=== PATIENT | female | born 1945 | race Hispanic/Latino ===

== ENCOUNTER 2019-06-20 10:09 | Observation (INO) | payer MEDICARE, OTHER ==
[2019-06-13 14:44] LABS: BASOPHILS % 0.5 % (0.0-1.0); EOSINOPHILS # (AUTO) 0.3 (0.0-0.4); EOSINOPHILS % 4.3 % (0.0-6.0); HEMATOCRIT 41.3 % (34.2-44.1); HEMOGLOBIN 13.2 g/dL (12.0-16.0); LYMPHOCYTES # (AUTO) 1.4 (1.0-3.2); LYMPHOCYTES % 23.6 % (18.0-39.1); MEAN CORPUSCULAR HEMOGLOBIN 31.9 pg (28-32); MEAN CORPUSCULAR VOLUME 99.8 fL (81-99); MONOCYTES # (AUTO) 0.4 (0.2-0.8); MONOCYTES % 6.7 % (4.4-11.3); NEUTROPHILS # (AUTO) 3.8 (2.1-6.9); NEUTROPHILS % 64.6 % (38.7-80.0); PLATELET COUNT 133 x10e3/uL (140-360); RED BLOOD COUNT 4.14 x10e6/uL (3.6-5.1)
[2019-06-13 15:02] LABS: ALANINE AMINOTRANSFERASE 19 IU/L (0-55); ALBUMIN 3.8 g/dL (3.5-5.0); ALKALINE PHOSPHATASE 142 IU/L (40-150); ANION GAP 11.4 mmol/L (8-16); BLOOD UREA NITROGEN 19 mg/dL (7-26); BUN/CREATININE RATIO 24 (6-25); CALCIUM 9.9 mg/dL (8.4-10.2); CARBON DIOXIDE 25 mmol/L (22-29); CHLORIDE 105 mmol/L (98-107); CREATININE, SERUM 0.79 mg/dL (0.57-1.11); EST GLOMERULAR FILTRATION RATE > 60 ML/MIN (60-); GLUCOSE 104 mg/dL (74-118); POTASSIUM 4.4 mmol/L (3.5-5.1); SODIUM 137 mmol/L (136-145)
[2019-06-20] VITALS (15 sets, daily range): BP systolic 146–171; BP diastolic 66–77
[~2019-06-20] VITALS: Ht 154.9 cm; Wt 48.5 kg
[~2019-06-20 10:09] MED LIST: ASA81 MG PO; ASPIR 8181 MG PO; ATORVASTATIN CA10 MG PO; BACTRIM DS1 EA PO; CALCIUM PO; CLOPIDOGREL75 MG PO; DITROPAN 5MG TAB5 MG PO; FUROSEMIDE40 MG PO; LISINOPRIL10 MG PO; MEPERIDINE PO; METFORMIN HCL500 MG PO; NORCO 10-325 T1 EACH PO; OMEPRAZOLE40 MG PO; TEMAZEPAM15 MG PO; TRAZODONE HCL50 MG PO; TYLENOL WITH C1 EACH PO; Z POTASSIUM CHLOR PO; Z.0.AMITRIPTYLINE H1 PO; Z.0.GLUCOPHAGE1000 M PO; Z.0.LASIX20 MG PO; Z.0.PLAVIX75 MG PO; Z.0.ZOCOR10 MG PO
[2019-06-20] MEDS ORDERED: ALPRAZOLAM 0.5 MG TAB ONE (10:35)
[2019-06-20] MEDS ORDERED: DIPHENHYDRAMINE HCL 25 MG CAP ONE (10:35)
[2019-06-20] MEDS ORDERED: HEPARIN SOD/SOD CHLORIDE 2,000 ML ONE (12:15)
[2019-06-20] MEDS ORDERED: FENTANYL CITRATE/PF 100MCG/2 ML INJ ONE (12:15)
[2019-06-20] MEDS ORDERED: MIDAZOLAM HCL 2 MG/2 ML VIAL ONE ×2 (12:15→12:58)
[2019-06-20] MEDS ORDERED: LIDOCAINE HCL 2% LOCAL 20 ML VIAL ONE (12:15)
[2019-06-20] MEDS ORDERED: IOPAMIDOL 300MG/ML 100 ML INFUS..BTL IV ONE (12:16)
[2019-06-20] MEDS ORDERED: SODIUM CHLORIDE 0.9% 1000ML 1,000 ML ONE ×2 (12:16→12:46)
[2019-06-20] MEDS ORDERED: VERAPAMIL HCL 2.5 MG/ML 2 ML VIAL ONE (12:46)
[2019-06-20] MEDS ORDERED: PRASUGREL 10 MG TAB ONE (13:13)
[2019-06-20] MEDS ORDERED: ASPIRIN 325 MG TAB ONE (13:13)
[2019-06-20] MEDS ORDERED: PROTAMINE SULFATE 10 MG/ML 5 ML VIAL ONE (13:34)
--- NOTE | 2019-06-20 13:39 | NUR ---
1339Received pt to room #10,bedside report received from Hannah CORBETT. Alert oriented and appropriate, PERRLA, respirations even and unlabored to room air. Pulses x4 extremities equal and strong. Pedal pulses PT/DP XXXXX and marked. Cap fill brisk < 3 sec. Skin warm and dry integrity appears D/I. IV 20g to left presents healthy w/o s/s of infiltration or complaint. Abdomen soft and supple. pt offered toileting, denies need to urinate or defecate. No personal affects with patient. Family Consquella at bedside. Pt and family verbalizes understanding POC Currently w/o complaint of pain or need. Act at 1400 159 Report to Jay Jay cardiovascular technologist ready for pull .Informed house supv. necessity tele obsv. Orders in and Tele track logged for bed.Rt sheath site NO gross issues pain pallor pressure or dysrhythmia.ds/santino
--- NOTE | 2019-06-20 14:44 | NUR ---
1444 Miguel Angel Rn at bedside sheath pull in progress held 20min stasis achieved and Tegaderm dressing ready for transfer to floor care Report phoned to Ashley Quiñonez ds/rn
--- NOTE | 2019-06-20 15:45 | NUR ---
1545p Transferred pt to room 109 for tele observation admit Dr Soto to probable am dc. Dc papers reviewed with family and have copy,bedside report given face to face to ARIC Ramirez.Down time till 1905pm Alert oriented and appropriate remains slightly drowsy, PERRLA, respirations even and unlabored to room air. Pulses x2 Pedal pulses PT/DP Pt is left amputation. Cap fill brisk < 3 sec. Skin warm and dry integrity appears IV 20g to hand at 100cchr presents healthy w/o s/s of infiltration or complaint. Abdomen soft and supple. pt offered toileting, urinated x1 per bedpan. No personal affects with patient. Family daughter Ivonne at bedside. Pt and family verbalizes understanding of POC. For probable dc in am. Currently w/o complaint of pain or need. Left sheath site stable No gross issues pain pallor pressure or dysrhythmia.Left Tegederm dressing intact. Report to tele rm and left pt with family at bedside. Call light at bedside and bed in low position. Did transfer pt snack tray and informed pt is on regular diet. ds/rn
--- NOTE | 2019-06-20 15:56 | NUR ---
Pt arrived to unit via stretcher with assist x2. Lethargic, fluids being administered at this time. Dressing to L groin, pedal pulses detected in RLE. IV to L hand patent, no redness or swelling to insertion site. Down time for pt till 1905 per [employer] CLERK [employer]. Tele monitor in place. Call light within reach, due to pt's lethargy, nurse informed family on how to use call light. Bed in lowest position.
[2019-06-20] MEDS ORDERED: ACETAMINOPHEN/CODEINE 300MG - 30MG TAB PO PRN ×2 (16:15→18:30)
[2019-06-20] MEDS ORDERED: MORPHINE SULFATE INJ 4 MG/ML INJ 1ML IV PRN (16:30)
[2019-06-20] MEDS: SODIUM CHLORIDE 0.9% 1000ML 1,000 ML IV SCH (16:59)
[2019-06-20] MEDS: OXYBUTYNIN CHLORIDE 5 MG TAB PO SCH (17:00)
--- NOTE | 2019-06-20 18:08 | NUR ---
Pt presents to still be lethargic due to medication received in post procedure. Arousal to touch and voice. L groin soft when palpated, pedal pulses detected in RLE. Pt still in supine position with surgical site leg to remain straight until 1905. Call light within reach, bed locked and in lowest position. Family member at bedside.
--- NOTE | 2019-06-20 19:10 | NUR ---
WALKING ROUNDS PERFORMED, RECEIVED PT LAYING SEMI FOWLERS IN BED, AAOX3, RR EVEN AND NON-LABORED, ON ROOM AIR. NO S/SX OF DISTRESS NOTED. DRESSING TO (L) GROIN NOTED TO BE CDI. PULSES TO (R) LOWER EXTREMITY NOTED. LEFT PT LAYING SEMI FOWLERS IN BED, BED IN LOW LOCKED POSITION, SIDE RAILS UPX2, CALL LIGHT AND PHONE WITHIN REACH.
[2019-06-20] MEDS: TRAZODONE HCL 50 MG TAB PO SCH (20:25)
--- NOTE | 2019-06-20 21:48 | Operative Report ---
DATE OF PROCEDURE: 06/20/2019 SURGEON: Dhiraj Soto MD CARDIAC AGENT PRODUCER PROCEDURE. INDICATIONS: Peripheral arterial disease, claudication of right lower extremity. PROCEDURES PERFORMED: 1. Abdominal aorta catheter placement with abdominal aortogram. 2. Third-order catheter placement from the left femoral artery to the right superficial femoral artery with unilateral extremity angiogram. 3. Additional third-order catheter placement from the left femoral artery to the right peroneal artery. 4. Atherectomy and angioplasty of the right femoral artery. 5. Secondary thrombectomy of the right femoral artery. COMPLICATIONS: None. RECOMMENDATIONS: Dual antiplatelet therapy for life. DESCRIPTION OF PROCEDURE: Access obtained in the left femoral artery. Abdominal aortogram was performed, demonstrated widely patent abdominal aorta iliacs bilaterally. The catheter was then advanced from the left femoral artery to the right superficial femoral artery, proximal right superficial femoral artery, 90% stenosis, mid and distal right superficial femoral artery, 90% tandem stenosis. Infrapopliteal vessels were not well visualized. The catheter was then advanced from the left femoral artery to the right peroneal artery. Two-vessel runoff via the right posterior tibial and peroneal arteries. Posterior tibial is diminutive and occluded at the plantar arch. Incomplete plantar arch in the right foot was noted. A decision was made to intervene on the right femoral artery. The patient received heparin for anticoagulation. The sheath was exchanged to a 6-Polish 45 cm sheath advanced from the left femoral artery to the right superficial femoral artery. Orbital atherectomy was performed following which balloon angioplasty using 5 and 6 mm drug-eluting balloons was performed, large amounts of visible thrombus with manual aspiration thrombectomy as needed to the right femoral artery, excellent end result, two-vessel runoff to the right foot. No complications. The left groin sheath was secured in place for removal under manual pressure. The patient was transferred to the floor in stable condition. Dhiraj Soto MD [facility]/MODL /[id number]
[2019-06-21] VITALS (8 sets, daily range): BP systolic 104–179; BP diastolic 56–96
[2019-06-21] MEDS: SODIUM CHLORIDE 0.9% 1000ML 1,000 ML IV SCH ×2 (00:09→12:15)
[2019-06-21] MEDS: ASPIRIN 81 MG CHEW TAB PO SCH (08:30)
[2019-06-21] MEDS: FUROSEMIDE 40 MG TAB PO SCH (08:30)
[2019-06-21] MEDS: ATORVASTATIN 10 MG TAB PO SCH (08:30)
[2019-06-21] MEDS: PANTOPRAZOLE SOD 40 MG TABEC PO SCH (08:30)
[2019-06-21] MEDS: OXYBUTYNIN CHLORIDE 5 MG TAB PO SCH ×2 (08:30→16:55)
[2019-06-21] MEDS: CLOPIDOGREL BISULFATE 75 MG TAB PO SCH (08:30)
--- NOTE | 2019-06-21 18:50 | NUR ---
RECEIVED REPORT FROM PREVIOUS NURSE. CALL LIGHT WITHIN REACH. PATIENT IN BED. DAUGHTER AT THE BEDSIDE. PATIENT IN NO DISTRESS
[2019-06-21] MEDS: AMLODIPINE BESYLATE 5 MG TAB PO SCH (19:41)
[2019-06-21] MEDS: TRAZODONE HCL 50 MG TAB PO SCH (20:20)
--- NOTE | 2019-06-21 20:21 | Progress Note ---
DATE: Cardiology Progress Note SUBJECTIVE: The patient reports pain in the left foot, headache, multiple other nonspecific symptoms. OBJECTIVE: VITAL SIGNS: Temperature is 97.3, heart rate is 86, respirations are 18, blood pressure is 150/71, and oxygen saturation 97% on room air. GENERAL: Well appearing, in mild distress due to pain. HEAD: Normocephalic and atraumatic. CARDIOVASCULAR: Regular rate and rhythm. LUNGS: Clear to auscultation. ABDOMEN: Soft, nontender, and nondistended. EXTREMITIES: No edema. CARDIOVASCULAR MEDICATIONS: Reviewed. LABORATORY DATA: Reviewed. IMPRESSION: 1. Peripheral arterial disease, status post intervention. 2. Hypertension. 3. Pain. 4. Headache. 5. Hyperlipidemia. RECOMMENDATIONS: The patient will be kept overnight due to intractable pain. Pain medications have been initiated on an as needed basis. We will give amlodipine for high blood pressure. We will continue dual antiplatelet therapy and statin for her peripheral arterial disease. Groin site looks nice and clean without any evidence of hematoma formation. Ramirez Apple DO BM/MODL /[id number]
[2019-06-22] VITALS: BP 164/68
[2019-06-22 04:00] VITALS: BP 101/50
[2019-06-22] MEDS: SODIUM CHLORIDE 0.9% 1000ML 1,000 ML IV SCH ×2 (05:55→08:15)
--- NOTE | 2019-06-22 07:00 | NUR ---
Gave report to oncoming nurse. Call light within reach. Patient in bed. Daughter at bedside
[2019-06-22 08:00] VITALS: BP 117/59
[2019-06-22 08:20] VITALS: BP 117/59
[2019-06-22] MEDS: ATORVASTATIN 10 MG TAB PO SCH (08:24)
[2019-06-22] MEDS: OXYBUTYNIN CHLORIDE 5 MG TAB PO SCH (08:24)
[2019-06-22] MEDS: PANTOPRAZOLE SOD 40 MG TABEC PO SCH (08:24)
[2019-06-22] MEDS: FUROSEMIDE 40 MG TAB PO SCH (08:24)
[2019-06-22] MEDS: CLOPIDOGREL BISULFATE 75 MG TAB PO SCH (08:24)
[2019-06-22] MEDS: AMLODIPINE BESYLATE 5 MG TAB PO SCH (08:24)
[2019-06-22] MEDS: ASPIRIN 81 MG CHEW TAB PO SCH (08:24)
[2019-06-22] MEDS ORDERED: AMLODIPINE BESYL5 MG PO (10:59)
--- NOTE | 2019-06-22 11:10 | NUR ---
patient alert and oriented with daughter at bedside. discharge instructions given at this time, both verbalized understanding. IV discontinued, catheter in tact and small dressing applied. patient to be wheeled out in personal wheelchair to private auto for daughter to drive home
== END 2019-06-22 12:43 | disposition home or self-care (01) ==
LOC: CATH LAB 10:09 → INTOOBSV 14:22 → PACU V 14:22 → MED/SURG 15:51
PROVIDERS: ADMIT Internal Medicine Interventional Cardiology; ATTEND Internal Medicine Interventional Cardiology
DX: I73.9 Peripheral vascular disease, unspecified (principal); I10 Essential (primary) hypertension; R51 Headache; E78.5 Hyperlipidemia, unspecified
CPT/HCPCS: 36415 ×3; 37186; 37225; 75625; 75710; 80053; 82948 ×2; 85025; C1724; C1766; C1769 ×2; C1887 ×2; G0378 ×3; J2001; J2250; J2270; J2720; J3010; J7030 ×3; Q9967; S0164 ×2; 36247; 99152; 99153

== ENCOUNTER 2022-12-25 16:26 | Emergency (ER) | payer MEDICARE, OTHER ==
[~2022-12-25] VITALS: Ht 154.9 cm; Wt 38.1 kg
[~2022-12-25 16:26] MED LIST changes: +AMLODIPINE BESYL5 MG PO
[2022-12-25 16:48] VITALS: O2SAT 100
== END 2022-12-25 17:30 | disposition home or self-care (01) ==
LOC: ER 16:35
DX: E11.649 Type 2 diabetes mellitus with hypoglycemia without coma (principal); I10 Essential (primary) hypertension; E78.5 Hyperlipidemia, unspecified; I73.9 Peripheral vascular disease, unspecified; K21.9 Gastro-esophageal reflux disease without esophagitis
CPT/HCPCS: 36415; 82948

== ENCOUNTER 2023-01-10 14:48 | Emergency (ER) | payer MEDICARE, OTHER ==
[~2023-01-10] VITALS: Ht 154.9 cm; Wt 38.1 kg
[2023-01-10] MEDS ORDERED: KETOROLAC TROMETHAMINE 30 MG/ML VIAL IM ONE (15:24)
[2023-01-10] MEDS ORDERED: NAPROXEN250 MG PO (17:01)
[2023-01-10] MEDS ORDERED: HYDROCODONE/APAP 5MG-325MG TAB PO ONE (17:15)
[2023-01-10 17:31] VITALS: BP 122/50; PULSE 84; RESP 16; TEMP 98.6; O2SAT 100
== END 2023-01-10 17:25 | disposition home or self-care (01) ==
LOC: ER 14:56
DX: S00.83XA Contusion of other part of head, initial encounter (principal); M25.532 Pain in left wrist; Z89.612 Acquired absence of left leg above knee; W18.39XA Other fall on same level, initial encounter; Y92.89 Other specified places as the place of occurrence of the external cause; I10 Essential (primary) hypertension; E11.9 Type 2 diabetes mellitus without complications; E78.5 Hyperlipidemia, unspecified; I73.9 Peripheral vascular disease, unspecified; K21.9 Gastro-esophageal reflux disease without esophagitis
CPT/HCPCS: 70450; 72125; 73110; 73552; 99283; J1885

== ENCOUNTER 2024-05-25 13:16 | Emergency (ER) | payer MEDICARE, OTHER ==
[~2024-05-25] VITALS: Ht 157.5 cm; Wt 39.5 kg
[~2024-05-25 13:16] MED LIST changes: +NAPROXEN250 MG PO
[2024-05-25 15:12] VITALS: TEMP 97.8
[2024-05-25 15:50] LABS: BASOPHILS % 0.2 % (0.0-1.0); EOSINOPHILS % 0.3 % (0.0-6.0); HEMATOCRIT 35.5 % (34.2-44.1); HEMOGLOBIN 10.4 g/dL (12.0-16.0); LYMPHOCYTES # (AUTO) 0.7 (1.0-3.2); LYMPHOCYTES % 6.1 % (18.0-39.1); MEAN CORPUSCULAR HEMOGLOBIN 29.4 pg (28-32); MEAN CORPUSCULAR HGB CONC 29.3 g/dL (31-35); MEAN CORPUSCULAR VOLUME 100.3 fL (81-99); MONOCYTES # (AUTO) 0.3 (0.2-0.8); MONOCYTES % 3.2 % (4.4-11.3); NEUTROPHILS # (AUTO) 9.6 (2.1-6.9); NEUTROPHILS % 89.9 % (38.7-80.0); PLATELET COUNT 207 x10e3/uL (140-360); RED BLOOD COUNT 3.54 x10e6/uL (3.6-5.1); RED CELL DISTRIBUTION WIDTH 16.8 % (11.7-14.4); WHITE BLOOD COUNT 10.64 x10e3/uL (4.8-10.8)
[2024-05-25] MEDS: SODIUM CHLORIDE 0.9% 500ML 500 ML IV ONE (15:54)
[2024-05-25 16:04] LABS: INR 0.96; PROTHROMBIN TIME 13.4 seconds (11.9-14.5)
[2024-05-25 16:11] LABS: ALBUMIN 3.2 g/dL (3.5-5.0); ALBUMIN/GLOBULIN RATIO 0.7 (0.8-2.0); ANION GAP 17.4 mmol/L (8-16); BILIRUBIN,TOTAL 0.4 mg/dL (0.2-1.2); CREATININE, SERUM 1.14 mg/dL (0.57-1.11); MAGNESIUM 1.9 MG/DL (1.3-2.1); POTASSIUM 4.4 mmol/L (3.5-5.1)
[2024-05-25 16:17] LABS: TROPONIN I 0.069 ng/mL (0-0.300)
[2024-05-25 18:34] VITALS: PULSE 91; RESP 16; O2SAT 97
== END 2024-05-25 19:03 | disposition home or self-care (01) ==
LOC: ER 15:30
DX: Z04.3 Encounter for examination and observation following other accident (principal); W18.11XA Fall from or off toilet without subsequent striking against object, initial encounter; Y92.89 Other specified places as the place of occurrence of the external cause; I10 Essential (primary) hypertension; E11.9 Type 2 diabetes mellitus without complications; E78.5 Hyperlipidemia, unspecified; I73.9 Peripheral vascular disease, unspecified; K21.9 Gastro-esophageal reflux disease without esophagitis
CPT/HCPCS: 36415; 70450; 71045; 72125; 80053; 82550; 83735; 84484; 85025; 85610; 85730; 93005; 99284; J7040

== ENCOUNTER 2024-09-23 21:27 | Emergency (ER) | payer MEDICARE, OTHER ==
[~2024-09-23] VITALS: Ht 152.4 cm; Wt 39.5 kg
[2024-09-23 21:30] VITALS: TEMP 98
[2024-09-23 22:29] LABS: BASOPHILS % 0.1 % (0.0-1.0); HEMATOCRIT 28.6 % (34.2-44.1); HEMOGLOBIN 9.3 g/dL (12.0-16.0); LYMPHOCYTES # (AUTO) 0.4 (1.0-3.2); LYMPHOCYTES % 2.7 % (18.0-39.1); MEAN CORPUSCULAR HEMOGLOBIN 30.5 pg (28-32); MEAN CORPUSCULAR HGB CONC 32.5 g/dL (31-35); MEAN CORPUSCULAR VOLUME 93.8 fL (81-99); MONOCYTES # (AUTO) 0.6 (0.2-0.8); MONOCYTES % 3.4 % (4.4-11.3); NEUTROPHILS % 93.4 % (38.7-80.0); PLATELET COUNT 168 x10e3/uL (140-360); RED BLOOD COUNT 3.05 x10e6/uL (3.6-5.1); RED CELL DISTRIBUTION WIDTH 16.6 % (11.7-14.4); WHITE BLOOD COUNT 16.02 x10e3/uL (4.8-10.8)
[2024-09-23 22:34] LABS: CORONAVIRUS COVID-19 AG NEGATIVE (NEGATIVE); INFLUENZA A AG NEGATIVE (NEGATIVE); INFLUENZA B AG NEGATIVE (NEGATIVE)
[2024-09-23] MEDS: SODIUM CHLORIDE 0.9% 1000ML 1,000 ML IV STA (22:35)
[2024-09-23] MEDS: ACETAMINOPHEN 325 MG TAB PO STA (22:36)
[2024-09-23 22:41] LABS: ALBUMIN 2.5 g/dL (3.5-5.0); ALBUMIN/GLOBULIN RATIO 0.5 (0.8-2.0); ANION GAP 14.3 mmol/L (8-16); BILIRUBIN,TOTAL 1.3 mg/dL (0.2-1.2); CALCIUM 9.4 mg/dL (8.4-10.2); CREATININE, SERUM 1.04 mg/dL (0.57-1.11); TOTAL PROTEIN 7.5 g/dL (6.5-8.1)
[2024-09-23 22:44] LABS: POTASSIUM 3.3 mmol/L (3.5-5.1)
[2024-09-23 22:49] LABS: TROPONIN I 0.472 ng/mL (0-0.300)
[2024-09-24] MEDS ORDERED: IOPAMIDOL 370 MG/ML 100 ML INFUS..BTL INJ ONE (00:03)
[2024-09-24] MEDS: ASPIRIN 325 MG TAB PO STA (03:34)
[2024-09-24] MEDS: ENOXAPARIN SOD INJ 40 MG/0.4 ML SYR SC STA (03:34)
[2024-09-24 04:30] VITALS: PULSE 87; RESP 21
[2024-09-24 05:07] VITALS: BP 124/50; O2SAT 99
== END 2024-09-24 05:03 | disposition other institution (70) ==
LOC: ER 21:31
DX: R09.02 Hypoxemia (principal); I21.4 Non-ST elevation (NSTEMI) myocardial infarction; J18.9 Pneumonia, unspecified organism; I10 Essential (primary) hypertension; E11.65 Type 2 diabetes mellitus with hyperglycemia; E78.5 Hyperlipidemia, unspecified; I73.9 Peripheral vascular disease, unspecified; K21.9 Gastro-esophageal reflux disease without esophagitis; Z11.52 Encounter for screening for COVID-19
CPT/HCPCS: 36415; 71045; 71260; 80053; 82550; 83518; 83605; 83690; 83880; 84484; 85025; 86850; 86900; 87040; 87428; 93005; 99284; J1650; J2543; J7030; Q9967

== ENCOUNTER 2024-10-10 13:57 | Inpatient (IN) | payer MEDICARE, OTHER ==
[~2024-10-10] VITALS: Ht 157.5 cm; Wt 34.5 kg
[2024-10-10] VITALS (7 sets, daily range): BP systolic 92–123; BP diastolic 33–58; PULSE 67–76; RESP 14–33; TEMP 97.8–98.1; O2SAT 97–100
[2024-10-10] MEDS: SODIUM CHLORIDE 0.9% 1000ML 1,000 ML IV ONE (14:51)
[2024-10-10] MEDS ORDERED: CLINDAMYCIN HC300 MG PO (17:14)
[2024-10-10] MEDS ORDERED: SODIUM CHLORIDE 0.9% 1000ML 1,000 ML IV SCH ×2 (17:45)
[2024-10-10] MEDS ORDERED: ONDANSETRON HCL INJ 2MG/ML 2ML 2 MG/ML VIAL IV PRN (17:45)
[2024-10-10] MEDS: SODIUM CHLORIDE 0.9% 1000ML 500 ML IV SCH (19:27)
[2024-10-10] MEDS ORDERED: CLINDAMYCIN 600 MG/50 ML IV ONE (19:30)
[2024-10-10] MEDS: CLINDAMYCIN 600MG / 50ML 50 ML IV ONE (19:56)
[2024-10-11] VITALS (35 sets, daily range): BP systolic 110–165; BP diastolic 45–80; PULSE 64–76; RESP 8–21; TEMP 97.9–98.1; O2SAT 95–100
[2024-10-11] MEDS: Clindamycin INJ 300 MG/50 ML 50 ML IV SCH (00:06)
[2024-10-11 07:25] LABS: BASOPHILS % 0.5 % (0.0-1.0); EOSINOPHILS # (AUTO) 0.1 (0.0-0.4); EOSINOPHILS % 1.1 % (0.0-6.0); HEMATOCRIT 28.2 % (34.2-44.1); HEMOGLOBIN 8.2 g/dL (12.0-16.0); LYMPHOCYTES # (AUTO) 0.7 (1.0-3.2); LYMPHOCYTES % 11.9 % (18.0-39.1); MEAN CORPUSCULAR HEMOGLOBIN 29.9 pg (28-32); MEAN CORPUSCULAR HGB CONC 29.1 g/dL (31-35); MEAN CORPUSCULAR VOLUME 102.9 fL (81-99); MONOCYTES # (AUTO) 0.4 (0.2-0.8); MONOCYTES % 7.1 % (4.4-11.3); NEUTROPHILS # (AUTO) 4.4 (2.1-6.9); PLATELET COUNT 162 x10e3/uL (140-360); RED BLOOD COUNT 2.74 x10e6/uL (3.6-5.1); RED CELL DISTRIBUTION WIDTH 16.9 % (11.7-14.4); WHITE BLOOD COUNT 5.53 x10e3/uL (4.8-10.8)
[2024-10-11 07:43] LABS: INR 1.13; PROTHROMBIN TIME 15.2 seconds (11.9-14.5)
[2024-10-11 07:44] LABS: PARTIAL THROMBOPLASTIN TIME 35.8 seconds (23.8-35.5)
[2024-10-11 08:14] LABS: ALBUMIN 2.3 g/dL (3.5-5.0); ALBUMIN/GLOBULIN RATIO 0.6 (0.8-2.0); ANION GAP 12.7 mmol/L (8-16); BILIRUBIN,TOTAL 0.5 mg/dL (0.2-1.2); CALCIUM 7.6 mg/dL (8.4-10.2); CREATININE, SERUM 0.99 mg/dL (0.57-1.11); POTASSIUM 3.7 mmol/L (3.5-5.1)
[2024-10-11] MEDS ORDERED: CARVEDILOL12.5 MG PO (10:44)
[2024-10-11 18:13] LABS: BILIRUBIN,URINE NEGATIVE (NEGATIVE); CLARITY,URINE CLEAR (CLEAR); COLOR,URINE YELLOW (YELLOW); GLUCOSE, URINE NEGATIVE (NEGATIVE); KETONES,URINE NEGATIVE (NEGATIVE); LEUKOCYTE ESTERASE ,URINE NEGATIVE (NEGATIVE); NITRITE,URINE NEGATIVE (NEGATIVE); PH,URINE 6 (5 - 7); PROTEIN,URINE DIPSTICK TRACE (NEGATIVE); URINE UROBILINOGEN 0.2 mg/dL (0.2 - 1)
[2024-10-11 18:18] LABS: BACTERIA,URINE FEW /HPF; EPITHELIAL CELLS,URINE MODERATE /LPF; RBC,URINE 0-5 /HPF (0-5); TRANSITIONAL EPI CELLS,URINE FEW
[2024-10-11] MEDS: TRAZODONE HCL 50 MG TAB PO SCH (22:45)
[2024-10-12] VITALS (7 sets, daily range): BP systolic 152–179; BP diastolic 52–66; PULSE 60–78; RESP 16–20; TEMP 97.5–98.1; O2SAT 97–100
[2024-10-12] MEDS: ACETAMINOPHEN 325 MG TAB PO PRN (03:29)
[2024-10-12] MEDS: CARVEDILOL 12.5 MG TAB PO ONE (03:29)
[2024-10-12 05:59] LABS: BASOPHILS % 0.4 % (0.0-1.0); EOSINOPHILS % 0.8 % (0.0-6.0); HEMATOCRIT 26.1 % (34.2-44.1); HEMOGLOBIN 8.2 g/dL (12.0-16.0); LYMPHOCYTES # (AUTO) 0.8 (1.0-3.2); LYMPHOCYTES % 15.7 % (18.0-39.1); MEAN CORPUSCULAR HEMOGLOBIN 30.3 pg (28-32); MEAN CORPUSCULAR HGB CONC 31.4 g/dL (31-35); MEAN CORPUSCULAR VOLUME 96.3 fL (81-99); MONOCYTES # (AUTO) 0.5 (0.2-0.8); MONOCYTES % 9.2 % (4.4-11.3); NEUTROPHILS # (AUTO) 3.6 (2.1-6.9); NEUTROPHILS % 73.5 % (38.7-80.0); PLATELET COUNT 190 x10e3/uL (140-360); RED BLOOD COUNT 2.71 x10e6/uL (3.6-5.1); RED CELL DISTRIBUTION WIDTH 16.6 % (11.7-14.4); WHITE BLOOD COUNT 4.91 x10e3/uL (4.8-10.8)
[2024-10-12 06:21] LABS: ANION GAP 10.7 mmol/L (8-16); CALCIUM 7.9 mg/dL (8.4-10.2); CREATININE, SERUM 0.8 mg/dL (0.57-1.11); POTASSIUM 3.7 mmol/L (3.5-5.1)
[2024-10-12 07:14] LABS: THYROID STIMULATING HORMONE 1.826 uIU/mL (0.350-4.940)
[2024-10-12 07:26] LABS: FOLATE 7.2 ng/mL (7.0-15.4)
[2024-10-12] MEDS: CARVEDILOL 12.5 MG TAB PO SCH (08:57)
[2024-10-12] MEDS: PANTOPRAZOLE SOD 40 MG TABEC PO SCH (08:57)
[2024-10-12] MEDS ORDERED: GADOBENATE DIMEGLUMINE 1 ML IV ONE (13:24)
[2024-10-13] VITALS (8 sets, daily range): BP systolic 148–173; BP diastolic 46–89; PULSE 62–72; RESP 16–20; TEMP 97.7–98.1; O2SAT 95–100
[2024-10-13 06:25] LABS: BASOPHILS % 0.6 % (0.0-1.0); EOSINOPHILS # (AUTO) 0.1 (0.0-0.4); EOSINOPHILS % 2.3 % (0.0-6.0); HEMATOCRIT 26.9 % (34.2-44.1); HEMOGLOBIN 8.3 g/dL (12.0-16.0); LYMPHOCYTES # (AUTO) 0.9 (1.0-3.2); LYMPHOCYTES % 25.6 % (18.0-39.1); MEAN CORPUSCULAR HGB CONC 30.9 g/dL (31-35); MEAN CORPUSCULAR VOLUME 97.1 fL (81-99); MONOCYTES # (AUTO) 0.4 (0.2-0.8); MONOCYTES % 10.5 % (4.4-11.3); NEUTROPHILS # (AUTO) 2.1 (2.1-6.9); NEUTROPHILS % 60.7 % (38.7-80.0); PLATELET COUNT 190 x10e3/uL (140-360); RED BLOOD COUNT 2.77 x10e6/uL (3.6-5.1); RED CELL DISTRIBUTION WIDTH 16.3 % (11.7-14.4); WHITE BLOOD COUNT 3.52 x10e3/uL (4.8-10.8)
[2024-10-13 07:03] LABS: CREATININE, SERUM 0.7 mg/dL (0.57-1.11)
[2024-10-13] MEDS ORDERED: CHOLESTYRAMINE 4 GM PACKET PO PRN (18:00)
[2024-10-13] MEDS: ACETAMINOPHEN/CODEINE 300MG - 30MG TAB PO PRN (21:42)
[2024-10-14] VITALS (8 sets, daily range): BP systolic 121–179; BP diastolic 49–70; PULSE 65–78; RESP 18–20; TEMP 97.5–98.1; O2SAT 97–100
[2024-10-14 06:46] LABS: BASOPHILS % 0.5 % (0.0-1.0); EOSINOPHILS # (AUTO) 0.1 (0.0-0.4); EOSINOPHILS % 2.4 % (0.0-6.0); HEMATOCRIT 26.2 % (34.2-44.1); HEMOGLOBIN 8.1 g/dL (12.0-16.0); LYMPHOCYTES # (AUTO) 1.1 (1.0-3.2); LYMPHOCYTES % 28.3 % (18.0-39.1); MEAN CORPUSCULAR HEMOGLOBIN 29.9 pg (28-32); MEAN CORPUSCULAR HGB CONC 30.9 g/dL (31-35); MEAN CORPUSCULAR VOLUME 96.7 fL (81-99); MONOCYTES # (AUTO) 0.4 (0.2-0.8); MONOCYTES % 10.2 % (4.4-11.3); NEUTROPHILS # (AUTO) 2.2 (2.1-6.9); NEUTROPHILS % 58.3 % (38.7-80.0); PLATELET COUNT 191 x10e3/uL (140-360); RED BLOOD COUNT 2.71 x10e6/uL (3.6-5.1); RED CELL DISTRIBUTION WIDTH 16.5 % (11.7-14.4); WHITE BLOOD COUNT 3.74 x10e3/uL (4.8-10.8)
[2024-10-14 07:18] LABS: ANION GAP 11.2 mmol/L (8-16); CALCIUM 7.9 mg/dL (8.4-10.2); CREATININE, SERUM 0.74 mg/dL (0.57-1.11); PHOSPHORUS 2.5 MG/DL (2.3-4.7); POTASSIUM 4.2 mmol/L (3.5-5.1)
[2024-10-14 07:39] LABS: FERRITIN 90.98 ng/mL (4.63-204.00)
[2024-10-14] MEDS: FOLIC ACID 1 MG TAB PO SCH (08:31)
[2024-10-14] MEDS: ATORVASTATIN 10 MG TAB PO SCH (08:31)
[2024-10-14] MEDS: CYANOCOBALAMIN INJ 1,000 MCG/ML VIAL IM SCH (08:31)
[2024-10-14] MEDS: OXYBUTYNIN CHLORIDE 5 MG TAB PO SCH (08:31)
[2024-10-14] MEDS: LISINOPRIL 10 MG TAB PO SCH (08:32)
[2024-10-14] MEDS: IRON SUCROSE 100 MG in SODIUM CHLORIDE 0.9% 100 ML IV SCH (10:36)
[2024-10-15] VITALS (8 sets, daily range): BP systolic 137–173; BP diastolic 49–91; PULSE 65–76; RESP 17–21; TEMP 97.4–98; O2SAT 98–100
[2024-10-15] MEDS: MELATONIN 5 MG TABLET PO PRN (21:11)
[2024-10-15] MEDS ORDERED: HYDRALAZINE HCL 20 MG/ML VIAL IV PRN (23:15)
[2024-10-16 04:00] VITALS: BP 163/59; PULSE 67; RESP 18; TEMP 98.1; O2SAT 98
[2024-10-16] MEDS: AMOXICILLIN 250 MG CAP PO ONE (05:39)
[2024-10-16] MEDS: CLINDAMYCIN HCL 150 MG CAP PO SCH (05:39)
[2024-10-16] MEDS ORDERED: AMOXICILLIN 250 MG CAP PO SCH (06:00)
[2024-10-16 08:40] VITALS: BP 165/52; PULSE 66; RESP 18; TEMP 97.7; O2SAT 98
[2024-10-16] MEDS: ASCORBIC ACID 500 MG TAB PO SCH (10:11)
[2024-10-16] MEDS: FERROUS SULFATE 325 MG TAB PO SCH (10:11)
[2024-10-16 12:51] VITALS: BP 197/61; PULSE 68; RESP 18; TEMP 97.6; O2SAT 100
[2024-10-16] MEDS ORDERED: Ferrous Sulfate PO (12:53)
[2024-10-16] MEDS ORDERED: AUGMENTIN 500-1 EACH PO (12:53)
[2024-10-16] MEDS ORDERED: ONDANSETRON HCL 4 MG ORAL DISINTEGRATING TAB PO PRN (13:45)
[2024-10-16] MEDS: AMOXICILLIN 250 MG CAP PO SCH (14:25)
== END 2024-10-16 15:15 | disposition home health service (06) | DRG 602 ==
LOC: FSED 14:00 → ERHOLD 17:48 → ICU 18:54 → MED/SURG2 10-11 18:40
PROVIDERS: ADMIT Internal Medicine; ATTEND Internal Medicine
DX: L03.113 Cellulitis of right upper limb (principal); E43 Unspecified severe protein-calorie malnutrition; R64 Cachexia; I50.22 Chronic systolic (congestive) heart failure; N39.0 Urinary tract infection, site not specified; Z68.1 Body mass index [BMI] 19.9 or less, adult; I11.0 Hypertensive heart disease with heart failure; B95.2 Enterococcus as the cause of diseases classified elsewhere; K21.9 Gastro-esophageal reflux disease without esophagitis; I95.89 Other hypotension; E86.0 Dehydration; I25.10 Atherosclerotic heart disease of native coronary artery without angina pectoris; D50.9 Iron deficiency anemia, unspecified; E78.5 Hyperlipidemia, unspecified; Z79.02 Long term (current) use of antithrombotics/antiplatelets; Z79.82 Long term (current) use of aspirin; Z79.84 Long term (current) use of oral hypoglycemic drugs; Z89.612 Acquired absence of left leg above knee; Z90.49 Acquired absence of other specified parts of digestive tract; Z90.710 Acquired absence of both cervix and uterus
CPT/HCPCS: 36415; 71045; 80048; 80053; 80076; 81001; 81003; 82607; 82728; 82746; 83540; 83605; 83735; 84100; 84443; 84466; 85025; 85045; 85610; 85730; 87040; 87086; 87186; 93005; 94799; 99252; 99283; J1756; J2470; J3420; J7030; J7050

== ENCOUNTER → 2024-12-21 | Day surgery (SDC) | payer MEDICARE, OTHER ==
[2024-12-15 15:12] LABS: BASOPHILS % 0.2 % (0.0-1.0); EOSINOPHILS # (AUTO) 0.1 (0.0-0.4); EOSINOPHILS % 0.6 % (0.0-6.0); HEMATOCRIT 29.9 % (34.2-44.1); HEMOGLOBIN 8.9 g/dL (12.0-16.0); LYMPHOCYTES # (AUTO) 0.7 (1.0-3.2); LYMPHOCYTES % 8.2 % (18.0-39.1); MEAN CORPUSCULAR HEMOGLOBIN 30.8 pg (28-32); MEAN CORPUSCULAR HGB CONC 29.8 g/dL (31-35); MEAN CORPUSCULAR VOLUME 103.5 fL (81-99); MONOCYTES # (AUTO) 0.6 (0.2-0.8); MONOCYTES % 6.7 % (4.4-11.3); NEUTROPHILS # (AUTO) 7.3 (2.1-6.9); NEUTROPHILS % 83.8 % (38.7-80.0); PLATELET COUNT 219 x10e3/uL (140-360); RED BLOOD COUNT 2.89 x10e6/uL (3.6-5.1); RED CELL DISTRIBUTION WIDTH 18.8 % (11.7-14.4); WHITE BLOOD COUNT 8.75 x10e3/uL (4.8-10.8)
[~2024-12-21] MED LIST changes: +AUGMENTIN 500-1 EACH PO; +CARVEDILOL12.5 MG PO; +CEFUROXIME250 MG PO; +CLINDAMYCIN HC300 MG PO; +DOCUSATE SODIU100 MG PO; +Ferrous Sulfate PO; +LACTATED RINGER'S 1,000 ML ONE; +LIDOCAINE HCL 2% LOCAL INJ 5 ML SDV VIAL INJ ONE; +MELATONIN3 MG PO; +METOCLOPRAMIDE HCL 10 MG/2ML VIAL ONE; +NYSTATIN-TRIAMC15 GM TOP; +PANTOPRAZOLE SO40 MG PO; +PROPOFOL IV EMULSION 10 MG/ML 20 ML VIAL ONE; +TARON FORTE CA1 EACH
[2024-12-21 09:42] VITALS: TEMP 98
[2024-12-21 10:15] VITALS: BP 94/46; PULSE 71; RESP 18; O2SAT 99
== END | disposition home or self-care (01) ==
LOC: ENDO 06:51
PROVIDERS: ATTEND Internal Medicine Gastroenterology
DX: R13.10 Dysphagia, unspecified (principal); K29.50 Unspecified chronic gastritis without bleeding; K31.89 Other diseases of stomach and duodenum; K44.9 Diaphragmatic hernia without obstruction or gangrene; E11.9 Type 2 diabetes mellitus without complications; I11.0 Hypertensive heart disease with heart failure; I50.9 Heart failure, unspecified; Z79.02 Long term (current) use of antithrombotics/antiplatelets; Z79.82 Long term (current) use of aspirin; Z79.899 Other long term (current) drug therapy; Z68.1 Body mass index [BMI] 19.9 or less, adult; Z87.891 Personal history of nicotine dependence
CPT/HCPCS: 36415 ×2; 43249; 82948; 85025; J2003; J2704; J2765; J7121; 43450

== ENCOUNTER 2025-02-02 01:50 | Emergency (ER) | payer MEDICARE, OTHER ==
[~2025-02-02] VITALS: Ht 154.9 cm; Wt 44.5 kg
[~2025-02-02 01:50] MED LIST changes: -LACTATED RINGER'S 1,000 ML ONE; -LIDOCAINE HCL 2% LOCAL INJ 5 ML SDV VIAL INJ ONE; -METOCLOPRAMIDE HCL 10 MG/2ML VIAL ONE; -PROPOFOL IV EMULSION 10 MG/ML 20 ML VIAL ONE
[2025-02-02 02:16] LABS: BASOPHILS % 0.4 % (0.0-1.0); EOSINOPHILS % 0.7 % (0.0-6.0); LYMPHOCYTES % 12.3 % (18.0-39.1); MONOCYTES % 5.6 % (4.4-11.3); NEUTROPHILS % 80.5 % (38.7-80.0); RED CELL DISTRIBUTION WIDTH 16.5 % (11.7-14.4)
[2025-02-02 02:25] LABS: INR 1.05
[2025-02-02 02:35] LABS: EST GLOMERULAR FILTRATION RATE 67.0 ML/MIN (>=60)
[2025-02-02 02:42] LABS: CORONAVIRUS COVID-19 AG NEGATIVE (NEGATIVE)
[2025-02-02] MEDS ORDERED: DOXYCYCLINE HYCLATE TABLET 100 MG TAB PO ONE (03:45)
[2025-02-02] MEDS ORDERED: DOXYCYCLINE HY100 MG PO (03:46)
[2025-02-02 04:03] VITALS: PULSE 72; RESP 18; TEMP 98.4
[2025-02-02 04:05] VITALS: BP 114/66; PULSE 69; RESP 18; TEMP 98.4; O2SAT 95
== END 2025-02-02 04:08 | disposition home or self-care (01) ==
LOC: ER 01:59
DX: J90 Pleural effusion, not elsewhere classified (principal); J98.4 Other disorders of lung; R07.9 Chest pain, unspecified; I10 Essential (primary) hypertension; I50.9 Heart failure, unspecified; R05.9 Cough, unspecified; I73.9 Peripheral vascular disease, unspecified; Z11.52 Encounter for screening for COVID-19
CPT/HCPCS: 36415; 71045; 80053; 83880; 84484; 85025; 85610; 85730; 93005; 99284